=== PATIENT | male | born 1990 | race Caucasian/White ===

== ENCOUNTER 2016-05-22 10:00 | Emergency (ER) | payer OTHER ==
[~2016-05-22] VITALS: Ht 177.8 cm; Wt 70.9 kg
[2016-05-22 10:06] VITALS: TEMP 38.1; Ht 177.8 cm; Wt 70.9 kg
[2016-05-22] MEDS ORDERED: KETOROLAC TROMETHAMINE 30 MG/ML VIAL IV STA (10:34)
[2016-05-22] MEDS ORDERED: AMPICILLIN/SULBACTAM SOD INJ 3,000 MG in SODIUM CHLORIDE 0.9% 100ML 100 ML IV ONE (10:45)
[2016-05-22] MEDS ORDERED: DEXAMETHASONE SOD INJ 10 MG/ML VIAL IV ONE (10:45)
[2016-05-22 11:25] LABS: BASO ABS # 0.01 K/uL (0-0.2); COMPLETE YES; HEMATOCRIT 44.3 % (42-52); IG% 0.3 %; LYMPH % 6.1 %; MEAN CELL VOLUME 85.9 fL (80-100); MEAN CORPUSCULAR HEMOGLOBIN 31.2 pg (25-34); MEAN CORPUSCULAR HGB CONC 36.3 g/dl (32-36); MEAN PLATELET VOLUME 10.6 fL (7.4-10.4); MONO % 12.4 %; NEUT % 81.2 %; PLATELET COUNT 156 K/uL (130-400); RED BLOOD COUNT 5.16 M/uL (4.7-6.1); WHITE BLOOD COUNT 21.34 K/uL (4.8-10.8)
[2016-05-22 11:46] LABS: BUN/CREATININE RATIO 9.5 (10-20); CALCIUM 9.3 mg/dl (8.5-10.1); CREATININE 1.1 mg/dl (0.60-1.40); POTASSIUM 3.4 mmol/L (3.5-5.1)
[2016-05-22] MEDS ORDERED: ONDANSETRON INJ 2 MG/ML 2 ML VIAL IV STA (12:05)
[2016-05-22] MEDS ORDERED: MoRPHine SULFATE 10 MG/ML CARP/VIAL IV STA (12:05)
[2016-05-22] MEDS ORDERED: OXYC1TAB3 PO (12:10)
[2016-05-22] MEDS ORDERED: METH4PAK PO (12:10)
[2016-05-22] MEDS ORDERED: AMOX875T PO (12:10)
[2016-05-22 12:14] VITALS: BP 123/72; PULSE 112
[2016-05-22 13:06] VITALS: O2SAT 95
--- NOTE | 2016-05-22 15:31 | EMERGENCY ROOM VISIT NOTE ---
History First contact with patient: 10:28 Chief Complaint: SORETHROAT Stated Complaint: SORE THROAT, TONSILS HURT, MUCUS, HARD TO BREATHE History of Present Illness The patient is a 25 year old male who presents to the Emergency Room with complaints of sore throat, left tonsillar pain, mucus production and difficulty swallowing. The patient reports a prior history of recurrent tonsillar swelling and "stones". The patient reports having [facility], and he has not been evaluated by ENT. The patient reports feeling feverish this morning as well. He denies any recent upper respiratory infection, including sinus congestion, runny nose or significant cough. He rates his discomfort an 8 out of 10. Review of Systems HEENT: Denies dizziness, visual problems, hearing loss, tinnitus. PULMONARY: Denies cough, shortness of breath, sputum production or hemoptysis. CARDIOVASCULAR: Denies chest pain, palpitations, dyspnea on exertion, orthopnea or peripheral edema. GASTROINTESTINAL: Denies diarrhea, constipation, nausea, vomiting, or abdominal pain. GENITOURINARY: Denies dysuria, frequency, urgency or nocturia. NEUROLOGIC: Denies history of epilepsy, CVA, TIA or chronic headaches. MUSCULOSKELETAL: Denies history of joint tenderness/swelling. SKIN: Denies rashes or lesions. PSYCHIATRIC: Denies history of depression or mental illness. ENDOCRINE: Denies history of diabetes or thyroid disorders. Past Medical/Surgical History Medical Problems: (1) Recurrent tonsillitis Surgical Problems: (1) No history of previous surgery Family History Unremarkable Social History Smoking Status: Never Smoker Alcohol Use: occasionally Marital Status: single Occupation Status: [employer] student Current/Historical Medications Scheduled Amoxicillin & Pot Clavulanate (Augmentin 875-125 mg), 1 TAB PO BID Methylprednisolone (Medrol Dosepak), 0 PO DAILY Scheduled PRN Oxycodone Ir (Roxicodone Ir), 1-2 TAB PO Q4H PRN for Pain Allergies Coded Allergies: No Known Allergies (Unverified , 05/22/16) Physical Exam Vital Signs Date Time Temp Pulse Resp B/P Pulse Ox O2 Delivery O2 Flow Rate FiO2 05/22/16 13:06 95 Room Air 05/22/16 12:14 112 16 123/72 95 Room Air 05/22/16 10:06 97 Room Air 05/22/16 10:06 38.1 126 18 128/83 99 Room Air Pain Rating (0-10): 0 Physical Exam CONSTITUTIONAL: Healthy and well nourished. Alert and oriented X 3 with positive affect. Patient appears in mild discomfort from pain. HEENT: Normocephalic, atraumatic. Pupils equal, round and reactive. No facial edema noted. Ears and nares are clear. OROPHARYNX: The patient has left tonsillar hypertrophy when compared to the right. Uvula is midline. Negative trismus. Thick exudates are noted. No obvious postnasal drip. No evidence for Rahul's angina or retropharyngeal abscess. NECK: Full active range of motion without discomfort. No nuchal rigidity. Trachea is midline. LYMPHATICS: Left anterior cervical chain adenopathy is noted. RESPIRATORY: Clear to auscultation bilaterally with no wheezing, crackles, rhonchi or stridor. CARDIOVASCULAR: Regular rate and rhythm with no murmurs, rubs or gallops. GASTROINTESTINAL: Bowel sounds present in all quadrants. Soft and nontender to palpation. No obvious hepatosplenomegaly. MUSCULOSKELETAL: Full range of motion of all joints without discomfort. INTEGUMENTARY: No rash or other significant dermatologic conditions noted. HEMATOLOGIC: No ecchymosis or petechiae noted. NEUROLOGIC: No focal neurologic deficits noted. Facial sensations are intact. Medical Decision & Procedures Laboratory Results 05/22/16 10:55 Red Blood Count 5.16, Mean Corpuscular Volume 85.9, Mean Corpuscular Hemoglobin 31.2, Mean Corpuscular Hemoglobin Concent 36.3, Mean Platelet Volume 10.6, Neutrophils (%) (Auto) 81.2, Lymphocytes (%) (Auto) 6.1, Monocytes (%) (Auto) 12.4, Eosinophils (%) (Auto) 0.0, Basophils (%) (Auto) 0.0, Neutrophils # (Auto ) 17.32, Lymphocytes # (Auto) 1.30, Monocytes # (Auto) 2.65, Eosinophils # (Auto ) 0.00, Basophils # (Auto) 0.01 05/22/16 10:55 Test 05/22/16 10:55 White Blood Count 21.34 K/uL (4.8-10.8) Red Blood Count 5.16 M/uL (4.7-6.1) Hemoglobin 16.1 g/dL (14.0-18.0) Hematocrit 44.3 % (42-52) Mean Corpuscular Volume 85.9 fL (80-100) Mean Corpuscular Hemoglobin 31.2 pg (25-34) Mean Corpuscular Hemoglobin Concent 36.3 g/dl (32-36) Platelet Count 156 K/uL (130-400) Mean Platelet Volume 10.6 fL (7.4-10.4) Neutrophils (%) (Auto) 81.2 % Lymphocytes (%) (Auto) 6.1 % Monocytes (%) (Auto) 12.4 % Eosinophils (%) (Auto) 0.0 % Basophils (%) (Auto) 0.0 % Neutrophils # (Auto) 17.32 K/uL (1.4-6.5) Lymphocytes # (Auto) 1.30 K/uL (1.2-3.4) Monocytes # (Auto) 2.65 K/uL (0.11-0.59) Eosinophils # (Auto) 0.00 K/uL (0-0.5) Basophils # (Auto) 0.01 K/uL (0-0.2) RDW Standard Deviation 40.5 fL (36.4-46.3) RDW Coefficient of Variation 13.0 % (11.5-14.5) Immature Granulocyte % (Auto) 0.3 % Immature Granulocyte # (Auto) 0.06 K/uL (0.00-0.02) Erythrocyte Sedimentation Rate 20 mm/hr (0-14) Anion Gap 11.0 mmol/L (3-11) Est Creatinine Clear Calc Drug Dose 104.7 ml/min Estimated GFR () 109.1 Estimated GFR (Non- 94.1 BUN/Creatinine Ratio 9.5 (10-20) Calcium Level 9.3 mg/dl (8.5-10.1) The above labs were reviewed. White count is markedly elevated. Remaining electrolytes are normal. Medications Administered Medications (Trade) Dose Ordered Sig/Fredi Route Start Time Stop Time Status Last Admin Dose Admin Ampicillin Sodium/ Sulbactam Sodium/ Sodium Chloride (Unasyn Inj/Nss 100ml) 108 ml @ 200 mls/hr ONE ONCE IV 05/22/16 10:45 05/22/16 11:17 DC 05/22/16 10:55 200 MLS/HR Ketorolac Tromethamine (Toradol Inj) 30 mg NOW STAT IV 05/22/16 10:34 05/22/16 10:36 DC 05/22/16 10:55 30 MG Dexamethasone Sodium Phosphate (Decadron Inj) 10 mg NOW ONCE IV 05/22/16 10:45 05/22/16 10:46 DC 05/22/16 10:55 10 MG Morphine Sulfate (MoRPHine SULFATE INJ) 8 mg NOW STAT IV 05/22/16 12:05 05/22/16 12:07 DC 05/22/16 12:14 8 MG Ondansetron HCl (Zofran Inj) 4 mg NOW STAT IV 05/22/16 12:05 05/22/16 12:07 DC 05/22/16 12:13 4 MG ED Course Patient history and physical exam were performed. Nurse's notes were reviewed. Vital signs were also reviewed, showing a temperature of 38.1C. The patient is normotensive but tachycardic. O2 saturation is also normal. IV access was established, and labs were drawn. The patient was administered IV normal saline , Decadron, Toradol and Unasyn 3 g IV. Labs were reviewed to show significant leukocytosis. The patient reported persistent pain, and was therefore administered IV morphine. The patient reports that he plans on going back to the [place] for further management and ENT referral. The patient was provided a prescription for Augmentin, Medrol Dosepak and OxyIR 5 mg. He was encouraged to alternate ibuprofen and Tylenol for additional baseline pain relief and fever control. He was provided contact information for Dr. Saunders, ENT physician, for further follow-up. He was instructed to return to the emergency department over the weekend for any progressively worsening swelling, difficulty swallowing or other concerning symptoms. The patient was happy with plan of care, voiced understanding of all discharge instructions, and rated his discomfort a 4 out of 10 on my final reevaluation. Medical Decision Clinical exam today is not consistent with any significant peritonsillar abscess as he has a negative trismus. I do feel that this treatment today will provide benefit, however the patient was instructed to return for worsening symptoms. As indicated in the previous section, I do not suspect Rahul's angina or retropharyngeal abscess. Impression Primary Impression: Acute infective tonsillitis Departure Information Dispostion Home / Self-Care Condition GOOD Prescriptions Oxycodone Ir (Roxicodone Ir) 5 Mg Tab 1-2 TAB PO Q4H Y for Pain, #15 TAB For Initial Treatment Prov: Cornelius Valdez PA 05/22/16 Methylprednisolone (MEDROL DOSEPAK) 4 Mg Matt 0 PO DAILY, #1 PKT Prov: Cornelius Valdez PA 05/22/16 Amoxicillin & Pot Clavulanate (Augmentin 875-125 mg) 1 Tab Tab 1 TAB PO BID for 10 Days, #20 TAB Prov: Cornelius Valdez PA 05/22/16 Referrals Rc Saunders MD Forms HOME CARE DOCUMENTATION FORM, IMPORTANT VISIT INFORMATION Patient Instructions My [facility] Additional Instructions Complete all Augmentin antibiotics and Medrol dosepak as prescribed. Ibuprofen 800 mg and/or Tylenol 1000 mg every 8 hours. You may also alternate these medications for more effective pain relief: Ibuprofen --4 HRS--> Tylenol --4 HRS--> ibuprofen --4 HRS--> Tylenol .... OxyIR if needed for worse pain. Do not drink or drive while taking OxyIR. Suggest follow-up with Dr. Saunders (ENT) or other ENT as referred to by your PCP. Suggest follow-up in the next 48-72 hours. Return to the emergency department for any progressively worsening symptoms. Problem Qualifiers Primary Impression: Acute infective tonsillitis Pharyngitis/tonsillitis etiology: unspecified etiology Qualified Codes: J03.90 - Acute tonsillitis, unspecified
== END 2016-05-22 13:14 | disposition home or self-care (01) ==
LOC: C.EDB 10:02 → C.EDA 13:14
DX: J03.90 Acute tonsillitis, unspecified (principal)

== ENCOUNTER 2019-05-29 10:45 | Inpatient (IN) ==
[2019-05-29] MEDS ORDERED: ONDANSETRON INJ 2 MG/ML 2 ML VIAL IV PRN ×3 (10:47→18:13)
[2019-05-29] MEDS ORDERED: VANCOMYCIN CONSULT ACTIVE PRN ×2 (10:47→18:13)
[2019-05-29] MEDS ORDERED: VANCOMYCIN HCL 1,000 MG/270 ML BAG IV SCH (10:47)
--- NOTE | 2019-05-29 11:26 | History & Physical Report ---
"Date of Service May 29, 2019 Assessment & Plan (1) Septic joint of right knee joint: Aspiration from 05/25/19 is growing rare staph, repeat aspiration from this morning was grossly purulent. Patient admitted to [facility] started on IV vancomycin pending results of aspirate from today. ID consult placed. Preop labs ordered. Plan on right knee arthroscopic I&D this afternoon. Risks, benefits and alternatives to surgery including but not limited to infection, DVT, pain, stiffness, need for revision surgery, damage to blood vessels, damage to nerves, PE, , were discussed with the patient and they wish to proceed. All questions answered. Septic arthritis organism: due to unspecified organism Qualified Code(s): M00.9 - Pyogenic arthritis, unspecified History of Present Illness Chief Complaint: Right knee pain and swelling Primary Care Provider: Ferny Grimes MD 28 year old male with no signficant PMHx presented to the office with increasing right knee pain and swelling. He underwent arthroscopic PCL reconstruction about 6 weeks ago. He had an uneventful post operative course until about 1 1/2 weeks ago with increasing pain and swelling. States was walking and had some discomfort posteriorly, later in the day felt a crack in his knee and has had increasing pain and swelling since. He also reports feeling of fatigue, GI upset last week. Also reports he has been getting night sweats as well as having darker colored urine. He was seen in the office on 05/25/19 and knee was aspirated and sent for analysis. Results demonstrated cell count fo 8500 white cells, 91% polys. Grams stain showed no organisms but culture is growing staph species. Repeat aspiration in office today demonstrated gross purulence. Patient was directly admitted to [facility] for planned arthroscopic I&D this afternoon. Patient denies headaches, double vision, blurred vision, cough, sore throat, dysphagia, chest pain, sob, wheezing, n/v/d/c, numbness, tingling, fatigue, urinary symptoms, mood disorders. ROS positive for right knee pain and stiffness, night sweats, subjective chills. Allergies Allergy/AdvReac Type Severity Reaction Status Date / Time No Known Allergies Allergy Verified 05/19/19 10:08 Home Medications Home Medications Medication Instructions Recorded Confirmed Type buspirone 10 mg PO BID 04/25/19 05/11/19 History oxycodone-acetaminophen [Percocet] 1 tab PO TID PRN 04/25/19 05/11/19 History dicyclomine 10 mg capsule 10 mg PO TID #90 cap 05/19/19 05/19/19 Rx rifaximin 550 mg tablet 550 mg PO TID 14 Days #42 tab 05/19/19 05/19/19 Rx Past Med/Surg History Medical History Abdominal cramping Abdominal pain Anxiety Blood in stool Hearing deficit Osteoarthritis Post traumatic stress disorder Surgical History History of arthroscopy of right knee meniscus repair History of bilateral inguinal hernia repair History of esophagogastroduodenoscopy (EGD) History of meniscectomy of right knee 04/18/2019 with ptl reconstruction History of wisdom tooth extraction Family History Mother Family history of celiac disease Other No family history of adverse response to anesthesia Social History Preferred Language: Danish Communication Ability: Effective Visual Impairment: No Limitations Hearing Ability: Hard of Hearing 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 Beliefs That Will Affect Care: None marital status: single Current Living Situation: Significant Other and Other Current Living Situation Comment: Lives with girlfriend and friend current occupational status: student Feels Safe at Home: Yes Smoking Status: Never smoker Second Hand Exposure: No ; Hx Alcohol Use: Yes Alcohol type: beer, wine and hard liquor Alcohol Intake Frequency: Weekly Hx Substance Use: No Childhood Exposure to Second-Hand Smoke: No caffeine: Yes during the past year weight has: other Seatbelt Use: always Sunscreen Use: Yes Review of Systems All systems reviewed & are unremarkable except as noted in HPI & below Physical Exam Constitutional: well developed and well nourished; no acute distress Eyes: PERRL, conjunctivae normal, anicteric sclerae ENMT: external ear and nose normal, oropharynx normal Neck: normal visual inspection Respiratory: normal respiratory effort; no respiratory distress Cardiovascular: Rate/Rhythm: regular rhythm and + tachycardic Musculoskeletal: Right knee: Moderate to large effusion, no erythema. Surgical scars are well healed. ROM 0-80, painful at end range. Stable to valgus and varus stress. PCL and ACL stable on exam. Skin: no rashes, warm and dry Neurologic: patellar DTR's 2+ bilat, sensation intact Psychiatric: A+Ox3, euthymic affect Results & Data Laboratory Results Gram Stain Final 05/26/19 Gram Stain Result Many WBCs Seen No Organisms Seen Joint Fluid/Space Culture Preliminary 05/28/19 Organism 1 Staphylococcus species Quantity Rare Sens Sensitivities to Follow Test Result Flag Reference Site Syn Source | KNEE | | | Syn Color | RED | | | Syn Appear | CLOUDY | | | Syn WBC (A) | 8519 | H | 0-200 /uL | Syn RBC (A) | 93848 | | /uL | Synovial Poly WBC | 91.6 | | % | Synovial Avery WBC | 8.4 | | % | Syn Crystals | | | | | No monosodium urate crystals (gout) or calcium pyrophosphate | dihydrate crystals (pseudogout) identified. | | Gabriella Perez M.D. Diagnostic Findings right knee radiographs: Post operative findings s/p PCL reconstruction"
--- NOTE | 2019-05-29 11:57 | Infectious Disease Consult ---
Date of Consultation May 29, 2019 Assessment & Plan (1) Septic joint of right knee joint: continue vanco, check blood cultures, follow outpatient culture results. await OR findings. History of Present Illness Attending Physician: Niraj Eng MD pt admitted with knee infection. had knee pain and underwent PCL reconstruction 6 weeks ago. had increased pain, aspiration done on 05/25 - growing Staph, final pending, wbc 8519, 92%N. now on vanco. admitted with plans for OR later today, labs pending. denies fevers at home but temp 38.2 currently. no abd pain, no n/v/d. no cp, sob, cough. no complaints other than pain in knee, in brace. Allergies Allergy/AdvReac Type Severity Reaction Status Date / Time No Known Allergies Allergy Verified 05/19/19 10:08 Home Medications Home Medications Medication Instructions Recorded Confirmed Type buspirone 10 mg PO BID 04/25/19 05/11/19 History oxycodone-acetaminophen [Percocet] 1 tab PO TID PRN 04/25/19 05/11/19 History dicyclomine 10 mg capsule 10 mg PO TID #90 cap 05/19/19 05/19/19 Rx rifaximin 550 mg tablet 550 mg PO TID 14 Days #42 tab 05/19/19 05/19/19 Rx Patient History Medical History Abdominal cramping Abdominal pain Anxiety Blood in stool Hearing deficit Osteoarthritis Post traumatic stress disorder Surgical History History of arthroscopy of right knee meniscus repair History of bilateral inguinal hernia repair History of esophagogastroduodenoscopy (EGD) History of meniscectomy of right knee 04/18/2019 with ptl reconstruction History of wisdom tooth extraction Family History Mother Family history of celiac disease Other No family history of adverse response to anesthesia Social History Preferred Language: Spanish Communication Ability: Effective Visual Impairment: No Limitations Hearing Ability: Hard of Hearing 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 Beliefs That Will Affect Care: None marital status: single Current Living Situation: Significant Other and Other Current Living Situation Comment: Lives with girlfriend and friend current occupational status: student Feels Safe at Home: Yes Smoking Status: Never smoker Second Hand Exposure: No ; Hx Alcohol Use: Yes Alcohol type: beer, wine and hard liquor Alcohol Intake Frequency: Weekly Hx Substance Use: No Childhood Exposure to Second-Hand Smoke: No caffeine: Yes during the past year weight has: other Seatbelt Use: always Sunscreen Use: Yes Review of Systems Review of Systems: All systems reviewed & are unremarkable except as noted in HPI & below Physical Exam Constitutional: WD/WN, vitals as above Eyes: PERRL, conjunctivae normal, anicteric sclerae ENMT: external ear and nose normal, oropharynx normal Neck: normal visual inspection Respiratory: normal respiratory effort, lungs clear to auscultation Cardiovascular: RRR, no murmur, no edema Gastrointestinal (Abdomen): normal bowel sounds, soft, nontender, no hepatosplenomegaly Musculoskeletal: no cyanosis or clubbing, extremities motor strength 5/5 Skin: no rashes, warm and dry knee dressing c/d/i Psychiatric: A+Ox3, euthymic affect Results & Data Vital Signs (Past 12 Hours) Vital Signs Temp Resp BP Pulse Ox 05/29/19 11:48 38.2 C H 18 122/81 96 PG Care Time/CCT Total # of Minutes Spent Total Time Spent with Patient: Total time spent is greater than 50% in coordination of care (as documented) at patient's floor/unit and/or counseling patient: Coding Level of Care Code 22827 Inpt Consult Level 4 Diagnoses Septic joint of right knee joint M00.9 Septic arthritis organism: due to unspecified organism (1) Septic joint of right knee joint Septic arthritis organism: due to unspecified organism Qualified Code(s): M00.9 - Pyogenic arthritis, unspecified
[2019-05-29] MEDS ORDERED: PATIENT'S HEIGHT AND/OR WEIGHT NEEDED SCH (12:00)
[2019-05-29 12:20] LABS: Basophils # (auto) 0.01 K/uL (0-0.2); Basophils % (auto) 0.1 %; Eosinophils # (auto) 0.01 K/uL (0-0.5); Eosinophils % (auto) 0.1 %; Hematocrit (blood only) 41.7 % (42-52); Hemoglobin 14.5 g/dL (14.0-18.0); Immature Granulocytes # (auto) 0.01 K/uL (0.00-0.02); Immature Granulocytes % (auto) 0.1 %; Lymphocytes # (auto) 0.75 K/uL (1.2-3.4); Lymphocytes % (auto) 9.5 %; Mean Corpuscular Hemoglobin 29.7 pg (25-34); Mean Corpuscular Volume 85.5 fL (80-100); Monocytes # (auto) 1.33 K/uL (0.11-0.59); Monocytes % (auto) 16.8 %; Neutrophils # (auto) 5.79 K/uL (1.4-6.5); Neutrophils % (auto) 73.4 %; Platelet Count 382 K/uL (130-400); RDW Coefficient of Variation 11.4 % (11.5-14.5); RDW Standard Deviation 35.6 fL (36.4-46.3); Red Blood Count 4.88 M/uL (4.7-6.1)
[2019-05-29 12:22] LABS: Mean Corpuscular Hgb Conc 34.8 g/dL (32-36)
[2019-05-29] MEDS: OXYCODONE/ACETAMINOPHEN 5mg/325mg TAB PO PRN ×2 (12:25→19:48)
[2019-05-29] MEDS: SODIUM CHLORIDE 0.9% 1000ML 1,000 ML IV SCH ×2 (12:26→19:42)
[2019-05-29] MEDS ORDERED: VANCOMYCIN HCL 2,000 MG in SODIUM CHLORIDE 0.9% 500 ML IV STA (12:33)
[2019-05-29 12:37] LABS: BUN Creatinine Ratio 11.5 (10-20); Calcium 9.9 mg/dl (8.5-10.1); Creatinine Clr Calc Pharmacy 109.4 ml/min; Est GFR (African American) 114.3; Est GFR (Non-African American) 98.6; Potassium 3.6 mmol/L (3.5-5.1)
--- NOTE | 2019-05-29 13:46 | Pharmacy Report ---
Pharmacy Abx Dose Short Note - Date of Service May 29, 2019 - Assessment & Plan Assessment * 28 year old M with septic R knee on vancomycin. PCL reconstruction ~6 weeks ago * Outpatient R knee culture from 05/25 w Staph species * ID consulted - continue vancomycin Vancomycin * Loading dose of 25 mg/kg * Maintenance dose based on AUC nomogram * Estimated trough 13.4 mcg/mL * Trough ordered prior to 4th overall dose Plan * Vancomycin 2000 mg IV x1 then 1250 mg IV q8h * Trough 05/30 @ 1330 Pharmacy will continue to follow and will adjust dose/frequency as necessary. Thank you.
[2019-05-29 15:35] LABS: Color Synovial Fluid Yellow; Source Synovial Fluid KNEE
[2019-05-29 15:36] LABS: Appearance Synovial Fluid Turbid; RBC Synovial Fluid (A) 27000 /uL; WBC Synovial Fluid (A) 139300 /ul (0-200)
[2019-05-29 15:37] LABS: Mononuclear WBC Synovial 4.2 %; Polynuclear WBC Synovial 95.8 %
--- NOTE | 2019-05-29 15:44 | Hospitalist Consultation ---
Date of Consultation May 29, 2019 Assessment & Plan (1) Septic joint of right knee joint: Labs reviewed:WBC 8519, 92%N. Cont Vanco with trough 15-20 managed by pharmacy. Pt will have today right knee incision and drainage , status post posterior cruciate ligament reconstruction. (2) Irritable bowel syndrome with diarrhea: Stable, continue Dicyclomine 10 mg PO TID. Present on Admission?: Yes (3) Recurrent tonsillitis: No issues at this time. Present on Admission?: Yes (4) Anxiety disorder: Continue buspirone 10 mg PO BID. Present on Admission?: Yes History of Present Illness Reason for Consultation: medical management Requesting Physician: The patient is 28 y/o male with PMHx of recurrent tonsillitis,IBS admitted for septic joint of the right knee.Pt underwent PCL reconstruction 6 weeks ago. S/p surgery had increased pain, aspiration done on 05/25 culture grew Staph, final culture pending. Patient c/o right knee pain and swelling.Pt denies fever, chills, chest pain, SOB, abdominal pain, frequency and urgency. Attending Physician: Niraj Eng MD Allergies Allergy/AdvReac Type Severity Reaction Status Date / Time No Known Allergies Allergy Verified 05/19/19 10:08 Home Medications Home Medications Medication Instructions Recorded Confirmed Type buspirone 10 mg PO BID 04/25/19 05/29/19 History oxycodone-acetaminophen [Percocet] 1 tab PO TID PRN 04/25/19 05/29/19 History dicyclomine 10 mg capsule 10 mg PO TID #90 cap 05/19/19 05/29/19 Rx rifaximin 550 mg tablet 550 mg PO TID 14 Days #42 tab 05/19/19 05/29/19 Rx Patient History Medical History Abdominal cramping Abdominal pain Anxiety Blood in stool Hearing deficit Osteoarthritis Post traumatic stress disorder Surgical History History of arthroscopy of right knee meniscus repair History of bilateral inguinal hernia repair History of esophagogastroduodenoscopy (EGD) History of meniscectomy of right knee 04/18/2019 with ptl reconstruction History of wisdom tooth extraction Family History Mother Family history of celiac disease Other No family history of adverse response to anesthesia Social History Preferred Language: [place] Citizen Communication Ability: Effective Visual Impairment: No Limitations Hearing Ability: Hard of Hearing 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 Beliefs That Will Affect Care: None marital status: single Current Living Situation: Other Current Living Situation Comment: roommate current occupational status: student Other Information That Helps Us Care for You: No Feels Safe at Home: Yes Safety Concerns: Feels Safe At This Time Smoking Status: Never smoker Second Hand Exposure: No ; Hx Alcohol Use: Yes Alcohol type: beer, wine and hard liquor Alcohol Intake Frequency: Weekly Hx Substance Use: No Childhood Exposure to Second-Hand Smoke: No caffeine: Yes during the past year weight has: other Seatbelt Use: always Sunscreen Use: Yes Review of Systems Review of Systems: All systems reviewed & are unremarkable except as noted in HPI & below Physical Exam Constitutional: WD/WN, vitals as above well developed and well nourished; no acute distress Eyes: PERRL, conjunctivae normal, anicteric sclerae ENMT: external ear and nose normal, oropharynx normal Mouth: no TMJ abnormality Mallampati Class: II Neck: normal visual inspection Respiratory: normal respiratory effort, lungs clear to auscultation normal respiratory effort; no respiratory distress Auscultation: lungs clear to auscultation bilaterally Cardiovascular: RRR, no murmur, no edema Rate/Rhythm: regular rate, regular rhythm and + tachycardic Gastrointestinal (Abdomen): normal bowel sounds, soft, nontender, no hepatosplenomegaly Musculoskeletal: no cyanosis or clubbing, extremities motor strength 5/5 Skin: no rashes, warm and dry Neurologic: patellar DTR's 2+ bilat, sensation intact moves all extremities Psychiatric: A+Ox3, euthymic affect Orientation: alert and oriented x 3 Results & Data Vital Signs (Past 12 Hours) Vital Signs Temp Pulse Resp BP Pulse Ox 05/29/19 15:01 37.3 C 91 H 16 114/76 94 05/29/19 11:30 38.2 C H 123 H 18 122/81 PG Care Time/CCT Total # of Minutes Spent Total Time Spent with Patient: Total time spent is greater than 50% in coordination of care (as documented) at patient's floor/unit and/or counseling p atient: Coding Level of Care Code 41190 Inpt Consult Level 3 Diagnoses Septic joint of right knee joint M00.9 Septic arthritis organism: due to unspecified organism Irritable bowel syndrome with diarrhea K58.0 Recurrent tonsillitis J03.91 Anxiety disorder F41.9 (1) Septic joint of right knee joint Septic arthritis organism: due to unspecified organism Qualified Code(s): M00.9 - Pyogenic arthritis, unspecified
--- NOTE | 2019-05-29 16:35 | Anesthesiology Consultation ---
Date of Service May 29, 2019 Assessment & Plan Chart Review Chart Review: Acceptable Risk for Surgery and Patient NOT seen in Pre Admission Testing Consults Requested none Proposed Anesthesia Risk / Benefits Reviewed With: PT / POA / Parent / Guardian, Accepts Plan and Informed Consent Obtained History Surgery Operation Date: 05/29/19 14:05 Proposed Procedures p Right Knee Incision and Drainage Arthroscopy - Niraj Eng MD Height/Weight Height: 5 ft 9.5 in Weight: 78.18 kg Allergies Allergy/AdvReac Type Severity Reaction Status Date / Time No Known Allergies Allergy Verified 05/19/19 10:08 Medications Home Medications Medication Instructions Recorded Confirmed Last Taken buspirone 10 mg PO BID 04/25/19 05/29/19 05/08/19 oxycodone-acetaminophen [Percocet] 1 tab PO TID PRN 04/25/19 05/29/19 05/28/19 dicyclomine 10 mg capsule 10 mg PO TID #90 cap 05/19/19 05/29/19 05/28/19 rifaximin 550 mg tablet 550 mg PO TID 14 Days #42 tab 05/19/19 05/29/19 Unknown Active Medications Generic Name Dose Route Start Last Admin Trade Name Freq PRN Reason Stop Dose Admin Sodium Chloride 1,000 mls @ 100 mls/hr 05/29/19 11:00 05/29/19 12:26 Nss 1000ml IV 06/28/19 10:59 100 mls/hr .Q10H MARJORIE Administration Vancomycin HCl 2,000 mg/ 540 mls @ 200 mls/hr 05/29/19 12:33 05/29/19 16:09 Sodium Chloride IV 05/29/19 15:14 Infused NOW STA Infusion Oxycodone/Acetaminophen 1 - 2 tab 05/29/19 10:47 05/29/19 12:25 Percocet 5mg/325mg PO 06/12/19 10:46 1 tab Q4H PRN Administration Pain Past Medical History Medical History Abdominal cramping Abdominal pain Anxiety Blood in stool Hearing deficit Osteoarthritis Post traumatic stress disorder Past Family History Family History Mother Family history of celiac disease Other No family history of adverse response to anesthesia Past Surgical History Surgical History History of arthroscopy of right knee meniscus repair History of bilateral inguinal hernia repair History of esophagogastroduodenoscopy (EGD) History of meniscectomy of right knee 04/18/2019 with ptl reconstruction History of wisdom tooth extraction Social History Smoking Status: Never smoker Hx Alcohol Use: Yes Alcohol type: beer, wine and hard liquor alcohol intake frequency: holidays/special occasions only Hx Substance Use: No substance use type: does not use Physical Exam Vital Signs Last Vital Signs Temp 37.3 C 05/29/19 15:01 Pulse 91 H 05/29/19 15:01 Resp 16 05/29/19 15:01 BP 114/76 05/29/19 15:01 Pulse Ox 94 05/29/19 15:01 Testing Laboratory Results 05/29/19 11:59 05/29/19 11:59
[2019-05-29] MEDS ORDERED: HYDROmorphone INJ 2 MG/ML SYR/VIAL IV PRN (16:38)
[2019-05-29] MEDS ORDERED: ePHEDrine sulfate 50 MG/ML AMP IV PRN (16:38)
[2019-05-29] MEDS ORDERED: PROMETHAZINE HCL 12.5 MG in SODIUM CHLORIDE 0.9% 50 ML IV PRN (16:38)
[2019-05-29] MEDS ORDERED: ATROPINE SULFATE 0.1 MG/ML 10ML SYR IV PRN (16:38)
[2019-05-29] MEDS ORDERED: METOCLOPRAMIDE HCL INJ 5 MG/ML 2 ML VIAL IV PRN ×2 (16:38→18:13)
[2019-05-29] MEDS ORDERED: MIDAZOLAM HCL 1 MG/ML 2ML VIAL ONE (16:41)
[2019-05-29] MEDS ORDERED: fentaNYL citrate 100 MCG/2 ML VIAL ONE (16:41)
[2019-05-29] MEDS ORDERED: DEXAMETHASONE SOD INJ 4 MG/ML VIAL ONE (16:41)
[2019-05-29] MEDS ORDERED: PROPOFOL IV EMULSION 10 MG/ML 20 ML VIAL IV ONE (16:41)
[2019-05-29] MEDS ORDERED: LIDOCAINE HCL 2% 2 ML VIAL/AMP(20MG/ML) INFIL ONE (16:41)
[2019-05-29] MEDS ORDERED: ONDANSETRON INJ 2 MG/ML 2 ML VIAL ONE (16:41)
[2019-05-29] MEDS ORDERED: BUPIVACAINE 0.5 % 5 MG/1 ML MPF 30ML VIAL ONE (16:47)
--- NOTE | 2019-05-29 16:47 | History & Physical Bridge Note ---
Date of Service May 29, 2019 History & Physical Bridge Note I have examined the patient, reviewed the History & Physical and in the interval since the performance of the History & Physical I have noted the following changes of clinical significance: no changes noted
[2019-05-29] MEDS ORDERED: HYDROmorphone INJ 2 MG/ML SYR/VIAL ONE (17:09)
[2019-05-29] MEDS ORDERED: OXYCODONE/ACETAMINOPHEN 5mg/325mg TAB PO PRN (17:28)
[2019-05-29] MEDS ORDERED: bisacodyL 10 MG SUPP PR PRN (18:13)
[2019-05-29] MEDS ORDERED: MAGNESIUM HYDROXIDE SUSP 30 ML UDC PO PRN (18:13)
[2019-05-29] MEDS ORDERED: NALOXONE HCL 0.4 MG/1 ML VIAL/CARP IV PRN (18:13)
--- NOTE | 2019-05-29 18:13 | Operative Report ---
Post Operative Report Pre & Post Diagnosis Operation Date: 05/29/19 14:05 Pre-Op Diagnosis: INFECTED RIGHT KNEE STATUS POST POSTERIOR CRUCIATE LIGAMENT RECONSTRUCTION Post-Op Diagnosis: INFECTED RIGHT KNEE STATUS POST POSTERIOR CRUCIATE LIGAMENT RECONSTRUCTION I identified the patient and participated in the time-out.: Yes Procedure Operation Date: 05/29/19 14:05 Actual Procedures p Right Knee Incision and Drainage Arthroscopy(Right), complete synovectomy- Niraj Eng MD Surgeon Niraj Eng MD Bartender Helper None Estimated Blood Loss 5 Findings Consistent with Post-Op Diagnosis Specimens Cultures Drains 1 Hemovac Anesthesia Type General Complications none Disposition Accompanied Patient To Recovery: No Disposition: Recovery Room Indications The patient is a 28-year-old male who proximally 6 weeks ago had undergone arthroscopic PCL reconstruction. He had been doing well postoperatively. About 2 weeks ago he had GI infection and underwent colonoscopy. For the last week and a half or so he has been having increasing pain and swelling in his knee. We evaluated him in the office on . At that point an aspiration was performed. The fluid was serosanguineous in nature. White blood cell count from that aspirate was 8500. The Gram stain was negative for bacteria. However culture from that aspirate began growing rare gram-positive cocci. He was evaluated the office today and was found to have continued pain and swelling and warmth from the knee. There was not really any significant erythema. He had complaints of chills and general malaise. Temperature in the office was 99.2 F but he was tachycardic at 135 bpm. A repeat aspirate demonstrated purulent fluid. He is directly mated from the office to the hospital. As we had a good aspiration from the office I started IV antibiotics once he reached the hospital. And as soon as operative availability allowed we are proceeding with irrigation debridement of the knee. Description of Procedure We discussed various treatment measures. The patient wished to proceed with arthroscopy. Risks, benefits and alternatives to surgery including, but not limited to, infection, DVT, pain, stiffness, need for revision surgery, possible continued infection of the allograft PCL reconstruction and possible need of later removal of the graft as well as hardware, failure to relieve all symptoms, damage to blood vessels, damage to nerves, risk of the anesthesia were discussed with the patient and they wished to proceed. The patient was identified. Laterality was confirmed and marked. The patient received a preoperative antibiotic. They were transferred to the operating room and placed in supine position and induced into general endotracheal anesthesia per the anesthesia staff. A well-padded tourniquet was placed on the thigh and the limb was prepped and draped in the usual standard manner with ChloraPrep. The limb was exsanguinated and the tourniquet was inflated. I made a standard anterolateral viewing portal made through a stab incision and bluntly entered the suprapatellar pouch. Fluid expressed from this was sent for culture. There was some purulent and inflammatory material seen throughout the knee. Utilizing a 4.5 mm shaver I performed a complete synovectomy. I thoroughly irrigated and debrided the knee through all 3 compartments utilizing arthroscopic shaver. There was grade 0 cartilage of the patella. There was grade 0 cartilage of the trochlea. There was grade 1 and 2 cartilage of the medial femoral condyle. There was grade 0 cartilage of the medial tibial plateau. The medial meniscus was normal. The Endobutton utilized for his PCL reconstruction was visible on the medial femoral condyle. This appeared to be stable. The ACL was probed and was normal. The PCL reconstruction was probed and found to be intact. His posterior drawer was stable. The lateral meniscus was normal There was grade 0 cartilage of the lateral femoral condyle. There was grade 0 cartilage of the lateral tibial plateau. A drain was then passed through 1 of the portals out anterior laterally. All of the instrumentation was removed from the knee. The portal sites were closed with nylon. A sterile dressing was applied and the tourniquet was released. All needle and sponge counts were correct at the end of the procedure. The patient was transferred to the PACU in stable condition without apparent complication. We will plan to consult infectious disease for assistance in antibiotic selection. I discussed with the patient that he may require a prolonged course of IV antibiotic therapy in order to try to preserve his allograft PCL reconstruction. I attest to the content of the Intraoperative Record and any orders documented therein. Any exceptions are noted below.
[2019-05-29] MEDS ORDERED: SODIUM CHLORIDE 0.9% 1000ML 1,000 ML IV SCH (18:15)
[2019-05-29] MEDS ORDERED: VANCOMYCIN HCL 1,250 MG in SODIUM CHLORIDE 0.9% 250 ML IV SCH (18:15)
--- NOTE | 2019-05-29 18:25 | Anesthesiology Progress Note ---
Date of Service May 29, 2019 Anesthesia Post Procedure Vital Signs Vital Signs: Temp Pulse Pulse Resp BP Pulse Ox 05/29/19 18:20 80 16 126/80 100 05/29/19 18:10 36.3 C L 80 12 111/75 99 05/29/19 16:30 37 C 98 H 16 127/73 98 05/29/19 15:01 37.3 C 91 H 16 114/76 94 05/29/19 11:30 38.2 C H 123 H 18 122/81 Pain Intensity Right Knee: Pain Intensity: 4 Transfer of Care Handoff Completed per policy Notes Mental Status: alert / awake / arousable and participated in evaluation Patient Amnestic to Procedure: Yes Nausea / Vomiting: adequately controlled Pain: adequately controlled Airway Patency, RR, SpO2: stable & adequate BP & HR: stable & adequate Hydration State: stable & adequate Anesthetic Complications: no major complications apparent
[2019-05-29] MEDS: fentaNYL citrate 100 MCG/2 ML VIAL IV PRN ×2 (18:45→18:50)
[2019-05-29] MEDS ORDERED: KETOROLAC 30 MG/ML VIAL ONE (18:58)
[2019-05-29] MEDS ORDERED: KETOROLAC 30 MG/ML VIAL IV ONE (19:00)
--- NOTE | 2019-05-29 19:30 | Anesthesiology Progress Note ---
Date of Service May 29, 2019 Anesthesia Post Procedure Vital Signs Vital Signs: Temp Pulse Pulse Resp BP Pulse Ox 05/29/19 18:30 80 16 123/77 99 05/29/19 18:20 80 16 126/80 100 05/29/19 18:10 36.3 C L 80 12 111/75 99 05/29/19 16:30 37 C 98 H 16 127/73 98 05/29/19 15:01 37.3 C 91 H 16 114/76 94 05/29/19 11:30 38.2 C H 123 H 18 122/81 Pain Intensity Right Knee: Pain Intensity: 4 Transfer of Care Handoff Completed per policy Notes Mental Status: alert / awake / arousable and participated in evaluation Patient Amnestic to Procedure: Yes Nausea / Vomiting: adequately controlled Pain: adequately controlled Airway Patency, RR, SpO2: stable & adequate BP & HR: stable & adequate Hydration State: stable & adequate Anesthetic Complications: no major complications apparent and Pt Satisfied with anesthetic care
[2019-05-29] MEDS ORDERED: RIFAXIMIN 550 MG TABLET PO SCH (21:00)
[2019-05-29] MEDS: VANCOMYCIN HCL 1,250 MG in SODIUM CHLORIDE 0.9% 250 ML IV SCH (21:25)
[2019-05-29] MEDS: DOCUSATE SODIUM 100 MG CAP PO SCH (21:25)
[2019-05-29] MEDS: DICYCLOMINE HCL 10 MG CAP PO SCH (21:25)
[2019-05-29] MEDS: CeleBREX 200 MG CAP PO SCH (21:25)
[2019-05-29] MEDS: SENNA 8.6 MG TAB PO SCH (21:26)
[2019-05-30] MEDS: OXYCODONE/ACETAMINOPHEN 5mg/325mg TAB PO PRN ×2 (04:04→13:54)
[2019-05-30 05:03] LABS: Mean Corpuscular Hemoglobin 29.5 pg (25-34); Mean Corpuscular Hgb Conc 34.2 g/dL (32-36); Mean Corpuscular Volume 86.4 fL (80-100); Platelet Count 344 K/uL (130-400); RDW Coefficient of Variation 11.5 % (11.5-14.5); White Blood Count 4.49 K/uL (4.8-10.8)
[2019-05-30 05:25] LABS: BUN Creatinine Ratio 13.7 (10-20); Blood Urea Nitrogen 10 mg/dl (7-18); Calcium 8.8 mg/dl (8.5-10.1); Carbon Dioxide 27 mmol/L (21-32); Chloride 102 mmol/L (98-107); Creatinine Clr Calc Pharmacy 160.2 ml/min; Est GFR (African American) > 150.0; Est GFR (Non-African American) 129.5; Glucose 121 mg/dl (70-99); Sodium 135 mmol/L (136-145)
[2019-05-30] MEDS: VANCOMYCIN HCL 1,250 MG in SODIUM CHLORIDE 0.9% 250 ML IV SCH ×2 (05:34→14:15)
--- NOTE | 2019-05-30 06:58 | Orthopedic Progress Note ---
Date of Service May 30, 2019 Assessment & Plan (1) Septic joint of right knee joint: POD#1 right arthroscopic I&D -WBAT -Pain management -DVT prophylaxis-SCDs -Continue IV vancomycin. Will await ID recommendations. Cx's from knee aspirate on 05/25/19 grew SPECIAL WEAPONS AND TACTICS OFFICER. Aspiration from office yesterday and OR cultures are pending. Blood cultures pending. Will likely need prolonged IV antibiotics. Patient seen and examined, agree with above. Appreciate ID assistance. Subjective POD#1 right knee arthroscopic I&D. He is resting in bed comfortably. Pain is controlled. He is having continued night sweats. No other complaints at this time. Is on IV vanco. Review of Systems Review of Systems: All systems reviewed & are unremarkable except as noted in HPI & below Physical Exam Physical Exam: Right knee dressing is c/d/i, no calf tenderness. Toes mobile, good dorsiflexion. Distally n/v status and sensation intact. Constitutional: well developed and well nourished; no acute distress Results & Data ([facility]) Vital Signs (Past 12 Hours) Vital Signs Temp Pulse Pulse Resp BP Pulse Ox 05/30/19 03:03 36.8 C 76 20 124/86 100 05/29/19 23:25 36.7 C 85 20 120/77 95 05/29/19 22:26 36.9 C 97 H 16 114/69 95 05/29/19 21:10 36.5 C 94 H 16 120/77 95 05/29/19 20:13 37 C 78 16 113/74 94 05/29/19 19:00 80 16 125/76 97 Laboratory Results H & H 05/29/19 05/30/19 Range/Units 11:59 04:43 Hgb 14.5 13.0 L (14.0-18.0) g/dL Hct 41.7 L 38.0 L (42-52) % (1) Septic joint of right knee joint Septic arthritis organism: due to unspecified organism Qualified Code(s): M00.9 - Pyogenic arthritis, unspecified
--- NOTE | 2019-05-30 07:56 | Anesthesiology Progress Note ---
Date of Service May 30, 2019 Anesthesia Post Procedure Vital Signs Vital Signs: Temp Pulse Pulse Resp BP Pulse Ox 05/30/19 07:42 36.4 C L 62 18 98/61 L 98 05/30/19 03:03 36.8 C 76 20 124/86 100 05/29/19 23:25 36.7 C 85 20 120/77 95 05/29/19 22:26 36.9 C 97 H 16 114/69 95 05/29/19 21:10 36.5 C 94 H 16 120/77 95 05/29/19 20:13 37 C 78 16 113/74 94 05/29/19 19:00 80 16 125/76 97 05/29/19 18:45 36.5 C 81 16 125/79 94 05/29/19 18:30 80 16 123/77 99 05/29/19 18:20 80 16 126/80 100 05/29/19 18:10 36.3 C L 80 12 111/75 99 05/29/19 16:30 37 C 98 H 16 127/73 98 05/29/19 15:01 37.3 C 91 H 16 114/76 94 05/29/19 11:30 38.2 C H 123 H 18 122/81 Pain Intensity Right Knee: Pain Intensity: 4 Notes Mental Status: alert / awake / arousable and participated in evaluation Nausea / Vomiting: adequately controlled Pain: adequately controlled Airway Patency, RR, SpO2: stable & adequate BP & HR: stable & adequate Hydration State: stable & adequate
--- NOTE | 2019-05-30 08:18 | Hospitalist Progress Note ---
Date of Service May 30, 2019 Assessment & Plan (1) Septic joint of right knee joint: Patient is POD#1 right arthroscopic I&D . Pain management DVT prophylaxis with SCDs Continue IV vancomycin Blood cultures x2 per ID recommendations Cultures from the aspirate May 25, 2019 grew OSTOMY NURSE . Aspiration from OR cultures are still pending Patient will likely need prolonged antibiotics , will discuss with ID .labs reviewed:WBC 8519, 92%N. Full code (2) Irritable bowel syndrome with diarrhea: Stable, continue Dicyclomine 10 mg PO TID. (3) Recurrent tonsillitis: No issues at this time. (4) Anxiety disorder: Continue buspirone 10 mg PO BID. Subjective Patient seen and examined at the bedside. POD#1 right knee arthroscopic I&D. He is resting in bed comfortably. Pain is controlled. Patient is afebrile but reports continues night sweats. Patient denies fever, chills, chest pain, shortness of breath, abdominal pain, frequency, urgency, syncope or near syncope. He is right knee is still warm to touch but improving. He is having continued night sweats. No other complaints at this time. Patient is on IV vanco. Review of Systems Review of Systems: All systems reviewed & are unremarkable except as noted in HPI & below Physical Exam Constitutional: WD/WN, vitals as above well developed and well nourished; no acute distress Eyes: PERRL, conjunctivae normal, anicteric sclerae ENMT: external ear and nose normal, oropharynx normal Mouth: no TMJ abnormality Mallampati Class: II Neck: normal visual inspection Respiratory: normal respiratory effort, lungs clear to auscultation normal respiratory effort; no respiratory distress Auscultation: lungs clear to auscultation bilaterally Cardiovascular: RRR, no murmur, no edema Rate/Rhythm: regular rate, regular rhythm and + tachycardic Gastrointestinal (Abdomen): normal bowel sounds, soft, nontender, no hepatosplenomegaly Musculoskeletal: no cyanosis or clubbing, extremities motor strength 5/5 Skin: no rashes, warm and dry Neurologic: patellar DTR's 2+ bilat, sensation intact moves all extremities Psychiatric: A+Ox3, euthymic affect Orientation: alert and oriented x 3 Results & Data Vital Signs (Past 12 Hours) Vital Signs Temp Pulse Resp BP Pulse Ox 05/30/19 07:42 36.4 C L 62 18 98/61 L 98 05/30/19 03:03 36.8 C 76 20 124/86 100 05/29/19 23:25 36.7 C 85 20 120/77 95 05/29/19 22:26 36.9 C 97 H 16 114/69 95 05/29/19 21:10 36.5 C 94 H 16 120/77 95 PG Care Time/CCT Total # of Minutes Spent Total Time Spent with Patient: Total time spent is greater than 50% in coordination of care (as documented) at patient's floor/unit and/or counseling patient: Coding Level of Care Code 09435 Subseq Hosp Care Lvl 3 Diagnoses Septic joint of right knee joint M00.9 Septic arthritis organism: due to unspecified organism Irritable bowel syndrome with diarrhea K58.0 Recurrent tonsillitis J03.91 Anxiety disorder F41.9 (1) Septic joint of right knee joint Septic arthritis organism: due to unspecified organism Qualified Code(s): M00.9 - Pyogenic arthritis, unspecified
[2019-05-30] MEDS: CeleBREX 200 MG CAP PO SCH ×2 (09:16→20:25)
[2019-05-30] MEDS: MULTIVITAMIN TAB PO SCH (09:16)
[2019-05-30] MEDS: DICYCLOMINE HCL 10 MG CAP PO SCH ×3 (09:17→20:25)
[2019-05-30] MEDS: DOCUSATE SODIUM 100 MG CAP PO SCH ×2 (09:22→20:23)
--- NOTE | 2019-05-30 12:33 | Infectious Disease Progress Nt ---
Date of Service May 30, 2019 Assessment & Plan (1) Septic joint of right knee joint: continue vanco for now, awaitblood culture OR culture results. repeat blood culturesx 2 Subjective pt s/p OR cultures pending, previous aspirate growing riley sensitive FIELD REPRESENTATIVE/HEALTH EDUCATION. blood cultures now + as well. afebrile. pain controlled, on vanco, tolerating well. wbc 4, wbc from OR fluid >139,000. no abd pain, no n/v/d.no cp, sob, cough. Review of Systems Review of Systems: All systems reviewed & are unremarkable except as noted in HPI & below Physical Exam Constitutional: WD/WN, vitals as above Eyes: PERRL, conjunctivae normal, anicteric sclerae ENMT: external ear and nose normal, oropharynx normal Neck: normal visual inspection Respiratory: normal respiratory effort, lungs clear to auscultation Cardiovascular: RRR, no murmur, no edema Gastrointestinal (Abdomen): normal bowel sounds, soft, nontender, no hepatosplenomegaly Musculoskeletal: no cyanosis or clubbing, extremities motor strength 5/5 Skin: no rashes, warm and dry Psychiatric: A+Ox3, euthymic affect Results & Data Vital Signs (Past 12 Hours) Vital Signs Temp Pulse Resp BP Pulse Ox 05/30/19 07:42 36.4 C L 62 18 98/61 L 98 05/30/19 03:03 36.8 C 76 20 124/86 100 Laboratory Results Microbiology 05/29/19 17:30 Knee,Right Gram Stain - Final 05/29/19 17:30 Knee,Right Aerobic and Anaerobic Culture - Preliminary Staphylococcus species 05/29/19 Unknown Knee,Right Gram Stain - Final 05/29/19 Unknown Knee,Right Joint Fluid Culture - Preliminary Staphylococcus species 05/29/19 11:59 Blood Anaerobic Blood Culture - Preliminary Gram positive cocci clusters PG Care Time/CCT Total # of Minutes Spent Total Time Spent with Patient: Total time spent is greater than 50% in coordination of care (as documented) at patient's floor/unit and/or counseling patient: Coding Level of Care Code 48999 Subseq Hosp Care Lvl 3 Diagnoses Septic joint of right knee joint M00.9 Septic arthritis organism: due to unspecified organism (1) Septic joint of right knee joint Septic arthritis organism: due to unspecified organism Qualified Code(s): M00.9 - Pyogenic arthritis, unspecified
[2019-05-30] MEDS ORDERED: VANCOMYCIN TROUGH ONE (13:30)
--- NOTE | 2019-05-30 14:43 | Pharmacy Report ---
Pharmacy Abx Dose Short Note - Date of Service May 30, 2019 - Assessment & Plan Microbiology 05/25/19 11:10 Knee,Right Joint Fluid Culture - Final Coag neg staph not lugdunensis 05/29/19 Unknown Knee,Right Joint Fluid Culture - Preliminary Staphylococcus species 05/29/19 17:30 Knee,Right Aerobic and Anaerobic Culture - Preliminary Staphylococcus species 05/29/19 12:00 Blood Aerobic Blood Culture - Preliminary 05/29/19 12:00 Blood Anaerobic Blood Culture - Preliminary No growth in Aerobic bottle after 24 hours. No growth in Anaerobic bottle after 24 hours. 05/29/19 11:59 Blood Aerobic Blood Culture - Preliminary 05/29/19 11:59 Blood Anaerobic Blood Culture - Preliminary Gram positive cocci clusters No growth in Aerobic bottle after 24 hours. Assessment 28 year old M ordered empiric vancomycin IV for treatment of septic R knee s/p PCL reconstruction ~6 weeks ago * Outpatient R knee culture from 05/25 growing riley sensitive Coag neg staph * Gram positive cocci in clusters reported in 05/04 BC. Repeat BC pending Plan Vancomycin * Trough level of 8 mcg/mL is subtherapeutic * Change to 1750 mg (22 mg/kg) IV every 8 hours * Goal trough level:~15 mcg/mL * Will repeat trough level in 3-4 doses if therapy is continued Pharmacy will continue to follow and will adjust dose/frequency as necessary. Thank you.
[2019-05-30] MEDS: SENNA 8.6 MG TAB PO SCH (20:23)
[2019-05-30] MEDS: VANCOMYCIN HCL 1,750 MG in SODIUM CHLORIDE 0.9% 500 ML IV SCH (20:24)
[2019-05-31] MEDS: VANCOMYCIN HCL 1,750 MG in SODIUM CHLORIDE 0.9% 500 ML IV SCH (04:49)
[2019-05-31 05:55] LABS: Basophils # (auto) 0.01 K/uL (0-0.2); Basophils % (auto) 0.1 %; Eosinophils # (auto) 0.02 K/uL (0-0.5); Eosinophils % (auto) 0.3 %; Hematocrit (blood only) 36.8 % (42-52); Hemoglobin 12.3 g/dL (14.0-18.0); Immature Granulocytes # (auto) 0.01 K/uL (0.00-0.02); Immature Granulocytes % (auto) 0.1 %; Lymphocytes # (auto) 2.35 K/uL (1.2-3.4); Mean Corpuscular Hgb Conc 33.4 g/dL (32-36); Mean Corpuscular Volume 86.8 fL (80-100); Mean Platelet Volume 10.2 fL (7.4-10.4); Monocytes # (auto) 0.62 K/uL (0.11-0.59); Monocytes % (auto) 9.2 %; Neutrophils % (auto) 55.3 %; Platelet Count 369 K/uL (130-400); RDW Coefficient of Variation 11.7 % (11.5-14.5); Red Blood Count 4.24 M/uL (4.7-6.1); White Blood Count 6.71 K/uL (4.8-10.8)
[2019-05-31 06:29] LABS: Albumin Level 2.6 gm/dl (3.4-5.0); BUN Creatinine Ratio 14.7 (10-20); C Reactive Protein 6.77 mg/dl (0-0.29); Calcium 8.7 mg/dl (8.5-10.1); Creatinine Clr Calc Pharmacy 149.7 ml/min; Est GFR (African American) 145.9; Est GFR (Non-African American) 125.9; Potassium 3.5 mmol/L (3.5-5.1)
[2019-05-31 06:32] LABS: Albumin Globulin Ratio 0.6 (0.9-2); Bilirubin,Total 0.3 mg/dl (0.2-1); Globulin 4.6 gm/dl (2.5-4.0); Total Protein 7.2 gm/dl (6.4-8.2)
--- NOTE | 2019-05-31 07:06 | Orthopedic Progress Note ---
Date of Service May 31, 2019 Assessment & Plan (1) Septic joint of right knee joint: POD#2 right knee arthroscopic I&D -WBAT -Pain management -DVT prophylaxis-SCDs -AM labs-Sodium normalized. Hemoglobin to 12.3 this am from 14.5 on admission likely due to surgical loss and dilutional effect. -Continue IV vancomycin. Will await ID recommendations. Cx's from knee aspirate on 05/25/19 grew PHOTO GRAPHICS LIBRARIAN. Aspiration from office and OR cultures are growing staph, sensitivities pending. Blood cultures showing gram possitive cocci. Will likely need prolonged IV antibiotics, appreciate ID assistance. Subjective Resting in bed comfortably on arrival. Knee pain is improved. Overall patient states he is improved, night sweats improving. Afebrile. No chest pain, sob, dizziness, n/v. Review of Systems Review of Systems: All systems reviewed & are unremarkable except as noted in HPI & below Physical Exam Physical Exam: Right knee dressing is c/d/i, no calf tenderness. Toes mobile. Distally neurovascular status and sensation intact. Constitutional: well developed and well nourished; no acute distress Results & Data ([facility]) Vital Signs (Past 12 Hours) Vital Signs Temp Pulse Pulse Resp BP Pulse Ox 05/31/19 06:48 36.6 C 64 18 112/78 99 05/30/19 23:07 36.7 C 72 18 110/73 98 Laboratory Results H & H 05/29/19 05/30/19 05/31/19 Range/Units 11:59 04:43 05:31 Hgb 14.5 13.0 L 12.3 L (14.0-18.0) g/dL Hct 41.7 L 38.0 L 36.8 L (42-52) % (1) Septic joint of right knee joint Septic arthritis organism: due to unspecified organism Qualified Code(s): M00.9 - Pyogenic arthritis, unspecified
[2019-05-31] MEDS: MULTIVITAMIN TAB PO SCH (09:08)
[2019-05-31] MEDS: CeleBREX 200 MG CAP PO SCH ×2 (09:09→21:02)
[2019-05-31] MEDS: DICYCLOMINE HCL 10 MG CAP PO SCH ×3 (09:09→21:02)
[2019-05-31] MEDS: OXYCODONE/ACETAMINOPHEN 5mg/325mg TAB PO PRN (09:10)
[2019-05-31] MEDS: DOCUSATE SODIUM 100 MG CAP PO SCH ×2 (09:10→20:58)
[2019-05-31] MEDS ORDERED: VANCOMYCIN TROUGH ONE (11:30)
--- NOTE | 2019-05-31 11:45 | Infectious Disease Progress Nt ---
Date of Service May 31, 2019 Assessment & Plan (1) Septic joint of right knee joint: vanco trough low and HOOP ROLLS OPERATOR riley sensitive from outpatient culture, no sensitivities to follow blood cultures per micro lab. will change to roecphin and follow repeat cultures. If negative in am, would be candidate for picc line. will plan on 6 weeks IV rocephin, 2 g daily with weekly cbc, cmp, esr. can follow with ID post d/c. Subjective pt OR cultures and blood cultures growing HOOP ROLLS OPERATOR, also grew this on 05/25 outpatient aspirate. repeat blood cultures pending. tolerating abx well. afebrile overnight wbc 6, vanco trough 8. Results & Data Vital Signs (Past 12 Hours) Vital Signs Temp Pulse Resp BP Pulse Ox 05/31/19 06:48 36.6 C 64 18 112/78 99 Laboratory Results Microbiology 05/29/19 17:30 Knee,Right Gram Stain - Final 05/29/19 17:30 Knee,Right Aerobic and Anaerobic Culture - Preliminary Staphylococcus species 05/29/19 Unknown Knee,Right Gram Stain - Final 05/29/19 Unknown Knee,Right Joint Fluid Culture - Preliminary Coag negative Staphylococcus 05/29/19 11:59 Blood Aerobic Blood Culture - Preliminary No growth in Aerobic bottle after 24 hours. 05/29/19 11:59 Blood Anaerobic Blood Culture - Preliminary Coag neg staph not lugdunensis 05/29/19 12:00 Blood Aerobic Blood Culture - Preliminary No growth in Aerobic bottle after 24 hours. 05/29/19 12:00 Blood Anaerobic Blood Culture - Preliminary No growth in Anaerobic bottle after 24 hours. PG Care Time/CCT Total # of Minutes Spent Total Time Spent with Patient: Total time spent is greater than 50% in co ordination of care (as documented) at patient's floor/unit and/or counseling patient: Coding Level of Care Code 16389 Subseq Hosp Care Lvl 1 Diagnoses Septic joint of right knee joint M00.9 Septic arthritis organism: due to unspecified organism (1) Septic joint of right knee joint Septic arthritis organism: due to unspecified organism Qualified Code(s): M00.9 - Pyogenic arthritis, unspecified
[2019-05-31] MEDS: cefTRIAXone SODIUM 2,000 MG in DEXTROSE 5% 50 ML IV SCH (12:39)
--- NOTE | 2019-05-31 15:38 | XCELERA ---
[id number] [id number]
[2019-05-31] MEDS: SENNA 8.6 MG TAB PO SCH (20:58)
--- NOTE | 2019-05-31 22:18 | Hospitalist Progress Note ---
Date of Service May 31, 2019 Assessment & Plan (1) Septic joint of right knee joint: POD#2 right knee arthroscopic I&D with washout. Intra-op cultures with coag negative staph. Has remained on IV vancomycin since admission. ID - Dr Olsen - recommending changing IV vanco to IV rocephin x 6 weeks. Admit blood cx's were + for coag neg staph; thus far repeat blood cx's negative. If blood cx's (repeat) are still negative by tomorrow then ok for PICC line placement at that time. Echo w/o evidence endocarditis. Cont pain control. (2) Septicemia: 2nd to coag neg staph from septic right knee. repeat blood cx's negative to date. echo w/o endocarditis findings. appreciate ID input. changing abx today to IV rocephin 2gm IV daily x 6 weeks. labs/vitals stable. (3) Irritable bowel syndrome with diarrhea: continue Dicyclomine 10 mg PO TID no abx-associated diarrhea to date (4) Anxiety disorder: Continue buspirone 10 mg PO BID home tomorrow if PICC can be placed and insurance auth is obtained for the IV abx coverage. Subjective only complaint is that of right knee pain otherwise feeling good decent appetite no diarrhea Review of Systems Constitutional: no fever and no chills Physical Exam Constitutional: well developed and well nourished; no acute distress ENMT: external ear and nose normal, oropharynx normal Respiratory: normal respiratory effort, lungs clear to auscultation Cardiovascular: Rate/Rhythm: regular rate and regular rhythm Heart Sounds: normal S1 and normal S2; no murmur Vessels: posterior tibial pulses present and dorsalis pedis pulses present Extremities: + edema (right foot/ankle - 1+; none on left) Gastrointestinal (Abdomen): normal bowel sounds, soft, nontender, no hepatosplenomegaly Musculoskeletal: right knee - mild effusion noted; large BUDDY wrap in place; drain in place Psychiatric: A+Ox3, euthymic affect Results & Data Vital Signs (Past 12 Hours) Vital Signs Temp Pulse Resp BP Pulse Ox 05/31/19 15:05 36.7 C 83 18 126/84 97 Laboratory Results Laboratory Results - last 24 hr 05/31/19 05/31/19 05/31/19 05:31 05:31 11:36 WBC 6.71 RBC 4.24 L Hgb 12.3 L Hct 36.8 L MCV 86.8 MCH 29.0 MCHC 33.4 RDW Std Deviation 37.0 RDW Coeff of Roger 11.7 Plt Count 369 MPV 10.2 Immature Gran % (Auto) 0.1 Neut % (Auto) 55.3 Lymph % (Auto) 35.0 Cassia % (Auto) 9.2 Eos % (Auto) 0.3 Baso % (Auto) 0.1 Immature Gran # (Auto) 0.01 Neut # (Auto) 3.70 Lymph # (Auto) 2.35 Cassia # (Auto) 0.62 H Eos # (Auto) 0.02 Baso # (Auto) 0.01 Sodium 140 Potassium 3.5 Chloride 106 Carbon Dioxide 31 Anion Gap 3.0 BUN 11 Creatinine 0.76 Est Cr Clr Drug Dosing 149.7 Est GFR ( Amer) 145.9 Est GFR (Non-Af Amer) 125.9 BUN/Creatinine Ratio 14.7 Glucose 100 H Calcium 8.7 Total Bilirubin 0.3 AST 37 ALT 98 H Alkaline Phosphatase 125 H C-Reactive Protein 6.77 H Total Protein 7.2 Albumin 2.6 L Globulin 4.6 H Albumin/Globulin Ratio 0.6 L Vancomycin Trough 17.8 right knee cultures, admit blood cultures - coag neg staph PG Care Time/CCT Total # of Minutes Spent Total Time Spent with Patient: Total time spent is greater than 50% in coordination of care (as documented) at patient's floor/unit and/or counseling patient: Coding Level of Care Code 72548 Subseq Hosp Care Lvl 2 Diagnoses Septic joint of right knee joint M00.9 Septic arthritis organism: due to unspecified organism Septicemia A41.9 Irritable bowel syndrome with diarrhea K58.0 Anxiety disorder F41.1 Anxiety disorder type: generalized anxiety disorder (1) Anxiety disorder Anxiety disorder type: generalized anxiety disorder Qualified Code(s): F41.1 - Generalized anxiety disorder (2) Septic joint of right knee joint Septic arthritis organism: due to unspecified organism Qualified Code(s): M00.9 - Pyogenic arthritis, unspecified
[2019-06-01 05:54] LABS: BUN Creatinine Ratio 17.9 (10-20); Creatinine Clr Calc Pharmacy 149.7 ml/min; Est GFR (African American) 145.9; Est GFR (Non-African American) 125.9; Potassium 4.2 mmol/L (3.5-5.1)
[2019-06-01] MEDS: DOCUSATE SODIUM 100 MG CAP PO SCH (08:51)
[2019-06-01] MEDS: MULTIVITAMIN TAB PO SCH (08:51)
[2019-06-01] MEDS: CeleBREX 200 MG CAP PO SCH (08:52)
[2019-06-01] MEDS: DICYCLOMINE HCL 10 MG CAP PO SCH ×2 (08:52→14:29)
--- NOTE | 2019-06-01 09:22 | Orthopedic Progress Note ---
Date of Service June 01, 2019 Assessment & Plan (1) Septic joint of right knee joint: POD#3 right knee arthroscopic I&D -WBAT -Pain management -DVT prophylaxis-SCDs -Patient switched to IV Rocephin. Per ID will need 6 weeks of IV Rocephin 2 g daily. Cx's from knee aspirate on 05/25/19 grew CONTENT STRATEGIST. Aspiration from office and OR cultures are CONTENT STRATEGIST, staph species, sensitivities pending but previous sensitivities riley sensitive. Blood cultures showing CONTENT STRATEGIST, repeat blood cultures no growth at 24hrs. Appreciate ID assistance. -Will need Picc. -New dressing applied to hemovac site. Portals left open to air. Subjective POD#3 right knee arthroscopic I&D. Doing well, mild amount of pain in knee but otherwise doing well. No other complaints at this time. Review of Systems Review of Systems: All systems reviewed & are unremarkable except as noted in HPI & below Physical Exam Physical Exam: Right knee dressing removed and hemovac pulled. No erythema. Minimal sanguinous drainage from hemovac site. Incisions are c/d/i. No erythema. Mild effusion, no significant tenderness about the knee. No calf tenderness. distally n/v status and sensation intact. Constitutional: well developed and well nourished; no acute distress Results & Data ([facility]) Vital Signs (Past 12 Hours) Vital Signs Temp Pulse Resp BP Pulse Ox 05/31/19 23:05 36.5 C 63 16 101/65 99 (1) Septic joint of right knee joint Septic arthritis organism: due to unspecified organism Qualified Code(s): M00.9 - Pyogenic arthritis, unspecified
[2019-06-01] MEDS: cefTRIAXone SODIUM 2,000 MG in DEXTROSE 5% 50 ML IV SCH (14:28)
--- NOTE | 2019-06-01 19:31 | Hospitalist Progress Note ---
Date of Service June 01, 2019 Assessment & Plan (1) Septic joint of right knee joint: POD#3 right knee arthroscopic I&D with washout. Intra-op cultures with coag negative staph. One culture is growing a 2nd staph species, identification to follow. Initially was on IV vancomycin then changed to IV rocephin 2 grams daily x 6 weeks as per recommendations from Dr Olsen (ID). Admit blood cx's were + for coag neg staph; 05/30 repeat blood cx's cont to remain negative suggesting sterility. Echo w/o evidence endocarditis. I obtained PICC line consent from the patient. PICC then placed, and IV abx set up by social work. Post-discharge patient will need weekly CBC, CMP, and ESR while on IV abx therapy. Will need ortho f/u and ID f/u. (2) Septicemia: resolved. 2nd to coag neg staph from septic right knee. repeat blood cx's negative to date. echo w/o endocarditis findings. appreciate ID input. cont IV rocephin 2gm IV daily x 6 weeks. labs/vitals stable. (3) Irritable bowel syndrome with diarrhea: continue Dicyclomine 10 mg PO TID no abx-associated diarrhea to date (4) Anxiety disorder: Continue buspirone 10 mg PO BID from medical standpoint patient can d/c home today with home health/IV abx, ortho/ID f/u, etc. Subjective patient anxious to d/c home. mild right knee pain only, mainly lateral joint. no diarrhea. feels good overall. Review of Systems Constitutional: no fever and no chills Respiratory: no cough and no dyspnea Cardiovascular: no chest pain Gastrointestinal: no abdominal pain, no nausea, no vomiting and no diarrhea/loose stools Physical Exam Constitutional: well developed and well nourished; no acute distress ENMT: external ear and nose normal, oropharynx normal Respiratory: normal respiratory effort, lungs clear to auscultation Cardiovascular: Rate/Rhythm: regular rate and regular rhythm Heart Sounds: normal S1 and normal S2; no murmur Vessels: posterior tibial pulses present and dorsalis pedis pulses present Extremities: + edema (right foot/ankle - 1+; none on left) Gastrointestinal (Abdomen): normal bowel sounds, soft, nontender, no hepatosplenomegaly Musculoskeletal: right knee - mild joint effusion. NO erythema. Multiple sutures in place. Former drain site, laterally, covered w/ dressing. Psychiatric: A+Ox3, euthymic affect Results & Data ([facility]) Vital Signs (Past 12 Hours) Vital Signs Temp Pulse Pulse Resp BP Pulse Ox 06/01/19 16:03 36.6 C 64 82 16 116/78 97 06/01/19 15:27 36.6 C 82 16 116/78 97 Laboratory Results Laboratory Results - last 24 hr 06/01/19 04:53 Sodium 139 Potassium 4.2 D Chloride 106 Carbon Dioxide 30 Anion Gap 3.0 BUN 14 Creatinine 0.76 Est Cr Clr Drug Dosing 149.7 Est GFR ( Amer) 145.9 Est GFR (Non-Af Amer) 125.9 BUN/Creatinine Ratio 17.9 Glucose 87 Calcium 9.0 repeat blood cx's from 05/30/2019 negative to date PG Care Time/CCT Total # of Minutes Spent Total Time Spent with Patient: Total time spent is greater than 50% in coordination of care (as documented) at patient's floor/unit and/or counseling patient: Coding Level of Care Code 68420 Subseq Hosp Care Lvl 2 Diagnoses Septic joint of right knee joint M00.9 Septic arthritis organism: due to unspecified organism Septicemia A41.9 Irritable bowel syndrome with diarrhea K58.0 Anxiety disorder F41.1 Anxiety disorder type: generalized anxiety disorder (1) Anxiety disorder Anxiety disorder type: generalized anxiety disorder Qualified Code(s): F41.1 - Generalized anxiety disorder (2) Septic joint of right knee joint Septic arthritis organism: due to unspecified organism Qualified Code(s): M00.9 - Pyogenic arthritis, unspecified
--- NOTE | 2019-06-03 19:15 | Discharge Summary ---
Date of Service June 03, 2019 Admission HPI Per Admitting Provider 28 year old male with no signficant PMHx presented to the office with increasing right knee pain and swelling. He underwent arthroscopic PCL reconstruction about 6 weeks ago. He had an uneventful post operative course until about 1 1/2 weeks ago with increasing pain and swelling. States was walking and had some discomfort posteriorly, later in the day felt a crack in his knee and has had increasing pain and swelling since. He also reports feeling of fatigue, GI upset last week. Also reports he has been getting night sweats as well as having darker colored urine. He was seen in the office on 05/25/19 and knee was aspirated and sent for analysis. Results demonstrated cell count fo 8500 white cells, 91% polys. Grams stain showed no organisms but culture is growing staph species. Repeat aspiration in office today demonstrated gross purulence. Patient was directly admitted to [facility] for planned arthroscopic I&D this afternoon. Patient denies headaches, double vision, blurred vision, cough, sore throat, dysphagia, chest pain, sob, wheezing, n/v/d/c, numbness, tingling, fatigue, urinary symptoms, mood disorders. ROS positive for right knee pain and stiffness, night sweats, subjective chills. Admission Exam Per Admitting Provider Constitutional: well developed and well nourished; no acute distress Eyes: PERRL, conjunctivae normal, anicteric sclerae ENMT: external ear and nose normal, oropharynx normal Neck: normal visual inspection Respiratory: normal respiratory effort; no respiratory distress Cardiovascular: Rate/Rhythm: regular rhythm and + tachycardic Musculoskeletal: Right knee: Moderate to large effusion, no erythema. Surgical scars are well healed. ROM 0-80, painful at end range. Stable to valgus and varus stress. PCL and ACL stable on exam. Skin: no rashes, warm and dry Neurologic: patellar DTR's 2+ bilat, sensation intact Psychiatric: A+Ox3, euthymic affect Principal Diagnosis Right septic knee Discharge Exam Constitutional well developed and well nourished; no acute distress Eyes PERRL, conjunctivae normal, anicteric sclerae ENMT external ear and nose normal, oropharynx normal Neck normal visual inspection Respiratory normal respiratory effort; no respiratory distress Cardiovascular Rate/Rhythm: regular rhythm and + tachycardic Skin no rashes, warm and dry Neurologic patellar DTR's 2+ bilat, sensation intact Psychiatric A+Ox3, euthymic affect Discharge Data Allergies Allergy/AdvReac Type Severity Reaction Status Date / Time No Known Allergies Allergy Verified 05/19/19 10:08 Consultations 05/29/19 10:47 Consult Case Management - Discharge Planning Routine 05/29/19 10:50 Consult Infectious Diseases Routine 05/29/19 12:53 Consult Hospitalist Routine 05/29/19 18:14 Consult Case Management - Discharge Planning Routine Procedures Performed Operation Date: 05/29/19 14:05 Actual Procedures p Right Knee Incision and Drainage Arthroscopy(Right) - Niraj Eng MD Hospital Course (1) Septic joint of right knee joint: Patient was admitted on Wednesday05/29/19 as a direct admit from our office due to a right septic knee. Right knee arthroscopic I&D was performed, patient tolerated procedure well. His activity post operatively was progressed and well tolerated. [facility] Infectious disease and [facility] hospitalist service were consulted to provide assistance during admission. Patient was found to have positive blood cultures growing TWISTING MACHINE OPERATOR with repeat cultures showing no growth. Knee aspirates from the office grew riley sensitive TWISTING MACHINE OPERATOR. Patient was switched from vancomycin to Rocephin on POD#2. He will receive 6 weeks of IV antibiotics, 2 g Rocephin daily. He is WBAT. On POD#3 patient PICC line was placed and patient felt stable for discharge home with services for home IV antibiotics. He will follow up in our office and with Dr. Olsen post operatively. Lab Results 05/29/19 05/29/19 05/29/19 Range/Units 11:59 11:59 11:59 WBC 7.90 (4.8-10.8) K/uL RBC 4.88 (4.7-6.1) M/uL Hgb 14.5 (14.0-18.0) g/dL Hct 41.7 L (42-52) % MCV 85.5 (80-100) fL MCH 29.7 (25-34) pg MCHC 34.8 (32-36) g/dL RDW Std Deviation 35.6 L (36.4-46.3) fL RDW Coeff of Roger 11.4 L (11.5-14.5) % Plt Count 382 (130-400) K/uL MPV 10.0 (7.4-10.4) fL Immature Gran % (Auto) 0.1 % Neut % (Auto) 73.4 % Lymph % (Auto) 9.5 % Hutchinson % (Auto) 16.8 % Eos % (Auto) 0.1 % Baso % (Auto) 0.1 % Immature Gran # (Auto) 0.01 (0.00-0.02) K/uL Neut # (Auto) 5.79 (1.4-6.5) K/uL Lymph # (Auto) 0.75 L (1.2-3.4) K/uL Hutchinson # (Auto) 1.33 H (0.11-0.59) K/uL Eos # (Auto) 0.01 (0-0.5) K/uL Baso # (Auto) 0.01 (0-0.2) K/uL ESR > 90 H (0-14) mm/hr Sodium (136-145) mmol/L Potassium (3.5-5.1) mmol/L Chloride (98-107) mmol/L Carbon Dioxide (21-32) mmol/L Anion Gap (3-11) BUN (7-18) mg/dl Creatinine (0.6-1.4) mg/dl Est Cr Clr Drug Dosing ml/min Est GFR ( Amer) Est GFR (Non-Af Amer) BUN/Creatinine Ratio (10-20) Glucose (70-99) mg/dl Calcium (8.5-10.1) mg/dl Total Bilirubin (0.2-1) mg/dl AST (15-37) U/L ALT (12-78) U/L Alkaline Phosphatase (45-117) U/L C-Reactive Protein 18.00 H (0-0.29) mg/dl Total Protein (6.4-8.2) gm/dl Albumin (3.4-5.0) gm/dl Globulin (2.5-4.0) gm/dl Albumin/Globulin Ratio (0.9-2) Synovial Source Synovial Color Synovial Appearance Synovial WBC (0-200) /ul Synovial RBC /uL Synovial Polynuclear % % Synovial Mononuclear % % Vancomycin Trough (See Comment) mcg/ml 05/29/19 05/29/19 05/30/19 Range/Units 11:59 Unknown 04:43 WBC (4.8-10.8) K/uL RBC (4.7-6.1) M/uL Hgb (14.0-18.0) g/dL Hct (42-52) % MCV (80-100) fL MCH (25-34) pg MCHC (32-36) g/dL RDW Std Deviation (36.4-46.3) fL RDW Coeff of Roger (11.5-14.5) % Plt Count (130-400) K/uL MPV (7.4-10.4) fL Immature Gran % (Auto) % Neut % (Auto) % Lymph % (Auto) % Hutchinson % (Auto) % Eos % (Auto) % Baso % (Auto) % Immature Gran # (Auto) (0.00-0.02) K/uL Neut # (Auto) (1.4-6.5) K/uL Lymph # (Auto) (1.2-3.4) K/uL Hutchinson # (Auto) (0.11-0.59) K/uL Eos # (Auto) (0-0.5) K/uL Baso # (Auto) (0-0.2) K/uL ESR (0-14) mm/hr Sodium 130 L 135 L (136-145) mmol/L Potassium 3.6 4.0 (3.5-5.1) mmol/L Chloride 96 L 102 (98-107) mmol/L Carbon Dioxide 25 27 (21-32) mmol/L Anion Gap 9.0 6.0 (3-11) BUN 12 10 (7-18) mg/dl Creatinine 1.04 0.71 D (0.6-1.4) mg/dl Est Cr Clr Drug Dosing 109.4 160.2 ml/min Est GFR ( Amer) 114.3 > 150.0 Est GFR (Non-Af Amer) 98.6 129.5 BUN/Creatinine Ratio 11.5 13.7 (10-20) Glucose 98 121 H (70-99) mg/dl Calcium 9.9 8.8 (8.5-10.1) mg/dl Total Bilirubin (0.2-1) mg/dl AST (15-37) U/L ALT (12-78) U/L Alkaline Phosphatase (45-117) U/L C-Reactive Protein (0-0.29) mg/dl Total Protein (6.4-8.2) gm/dl Albumin (3.4-5.0) gm/dl Globulin (2.5-4.0) gm/dl Albumin/Globulin Ratio (0.9-2) Synovial Source KNEE Synovial Color Yellow Synovial Appearance Turbid Synovial WBC 387348 H (0-200) /ul [place] 85[address] /uL Synovial Polynuclear % 95.8 % Synovial Mononuclear % 4.2 % Vancomycin Trough (See Comment) mcg/ml 05/30/19 05/30/19 05/31/19 Range/Units 04:43 14:07 05:31 WBC 4.49 L 6.71 (4.8-10.8) K/uL RBC 4.40 L 4.24 L (4.7-6.1) M/uL Hgb 13.0 L 12.3 L (14.0-18.0) g/dL Hct 38.0 L 36.8 L (42-52) % MCV 86.4 86.8 (80-100) fL MCH 29.5 29.0 (25-34) pg MCHC 34.2 33.4 (32-36) g/dL RDW Std Deviation 36.0 L 37.0 (36.4-46.3) fL RDW Coeff of Roger 11.5 11.7 (11.5-14.5) % Plt Count 344 369 (130-400) K/uL MPV 10.0 10.2 (7.4-10.4) fL Immature Gran % (Auto) 0.1 % Neut % (Auto) 55.3 % Lymph % (Auto) 35.0 % Hutchinson % (Auto) 9.2 % Eos % (Auto) 0.3 % Baso % (Auto) 0.1 % Immature Gran # (Auto) 0.01 (0.00-0.02) K/uL Neut # (Auto) 3.70 (1.4-6.5) K/uL Lymph # (Auto) 2.35 (1.2-3.4) K/uL Hutchinson # (Auto) 0.62 H (0.11-0.59) K/uL Eos # (Auto) 0.02 (0-0.5) K/uL Baso # (Auto) 0.01 (0-0.2) K/uL ESR (0-14) mm/hr Sodium (136-145) mmol/L Potassium (3.5-5.1) mmol/L Chloride (98-107) mmol/L Carbon Dioxide (21-32) mmol/L Anion Gap (3-11) BUN (7-18) mg/dl Creatinine (0.6-1.4) mg/dl Est Cr Clr Drug Dosing ml/min Est GFR ( Amer) Est GFR (Non-Af Amer) BUN/Creatinine Ratio (10-20) Glucose (70-99) mg/dl Calcium (8.5-10.1) mg/dl Total Bilirubin (0.2-1) mg/dl AST (15-37) U/L ALT (12-78) U/L Alkaline Phosphatase (45-117) U/L C-Reactive Protein (0-0.29) mg/dl Total Protein (6.4-8.2) gm/dl Albumin (3.4-5.0) gm/dl Globulin (2.5-4.0) gm/dl Albumin/Globulin Ratio (0.9-2) Synovial Source Synovial Color Synovial Appearance Synovial WBC (0-200) /ul Synovial RBC /uL Synovial Polynuclear % % Synovial Mononuclear % % Vancomycin Trough 8.0 (See Comment) mcg/ml 05/31/19 05/31/19 06/01/19 Range/Units 05:31 11:36 04:53 WBC (4.8-10.8) K/uL RBC (4.7-6.1) M/uL Hgb (14.0-18.0) g/dL Hct (42-52) % MCV (80-100) fL MCH (25-34) pg MCHC (32-36) g/dL RDW Std Deviation (36.4-46.3) fL RDW Coeff of Roger (11.5-14.5) % Plt Count (130-400) K/uL MPV (7.4-10.4) fL Immature Gran % (Auto) % Neut % (Auto) % Lymph % (Auto) % Hutchinson % (Auto) % Eos % (Auto) % Baso % (Auto) % Immature Gran # (Auto) (0.00-0.02) K/uL Neut # (Auto) (1.4-6.5) K/uL Lymph # (Auto) (1.2-3.4) K/uL Hutchinson # (Auto) (0.11-0.59) K/uL Eos # (Auto) (0-0.5) K/uL Baso # (Auto) (0-0.2) K/uL ESR (0-14) mm/hr Sodium 140 139 (136-145) mmol/L Potassium 3.5 4.2 D (3.5-5.1) mmol/L Chloride 106 106 (98-107) mmol/L Carbon Dioxide 31 30 (21-32) mmol/L Anion Gap 3.0 3.0 (3-11) BUN 11 14 (7-18) mg/dl Creatinine 0.76 0.76 (0.6-1.4) mg/dl Est Cr Clr Drug Dosing 149.7 149.7 ml/min Est GFR ( Amer) 145.9 145.9 Est GFR (Non-Af Amer) 125.9 125.9 BUN/Creatinine Ratio 14.7 17.9 (10-20) Glucose 100 H 87 (70-99) mg/dl Calcium 8.7 9.0 (8.5-10.1) mg/dl Total Bilirubin 0.3 (0.2-1) mg/dl AST 37 (15-37) U/L ALT 98 H (12-78) U/L Alkaline Phosphatase 125 H (45-117) U/L C-Reactive Protein 6.77 H (0-0.29) mg/dl Total Protein 7.2 (6.4-8.2) gm/dl Albumin 2.6 L (3.4-5.0) gm/dl Globulin 4.6 H (2.5-4.0) gm/dl Albumin/Globulin Ratio 0.6 L (0.9-2) Synovial Source Synovial Color Synovial Appearance Synovial WBC (0-200) /ul Synovial RBC /uL Synovial Polynuclear % % Synovial Mononuclear % % Vancomycin Trough 17.8 (See Comment) mcg/ml Total Time Total Time Spent Total Time Spent (In Minutes): 20 Discharge Plan Discharge Items Patient Disposition: Home - Home Health Services Reason For Visit: INFECTED RIGHT KNEE/STATUS PST PCL RECONSTRUCTION Discharge Diagnosis: Infected right knee Activity: Per Instructions section Non-emergency contact: Surgeon Call non-emergency contact if: you have any medication questions, your pain is not controlled, your pain is worsening, your pain is concerning for you, you have a fever, your temperature is above 101, your wound has increased redness, your wound has increased drainage and your wound pain has increased Follow-up/Referrals: Leonarda Olsen DO [Physician] - 06/12/19 10:00 am (Please, follow up at [facility] Infectious Disease Specialist Office with Dr. Olsen on WednesdayJune 12 at 10:15 am (arrive 10:00 am). *The office is located in [address] of [facility][Note 3], next to this hospital. If you need to change this appointment, call the office at [phone].) Ferny Grimes MD [Primary Care Provider] - 06/13/19 8:30 am (Please, follow up with Dr. Grimes on WednesdayJune 13 at 8:30 am. *If you need to change this appointment, call the office at [phone].) Diet: Regular Addtl Attending Provider Instructions: ACTIVITY RECOMMENDATIONS: * You may walk on the leg with or without crutches as comfort permits. * Bending of the knee should start at once. * Do not shower for 48 hours following surgery. SPECIAL CARE INSTRUCTIONS: * You may cleanse the skin adjacent to the small wounds with soap and water at the time of the first dressing change. * The application of an ice bag to the front and sides of the knee will decrease swelling and discomfort for the first 48 hours. * The small incisions may be sore and develop bruising. This bruising does not require any special care. SPECIAL PRECAUTIONS: * If you experience unusual pain unrelieved by prescriptions, temperature elevation (100 degrees F. or above) or progressive swelling or bleeding, you should contact our office at for further evaluation. * You may have been prescribed pain medication. If you experience nausea and/or fine skin rash, discontinue this medication and contact our office at for an alternate medication. DRESSING: * Dressing should be comfortable and absorb any leakage of fluid and/or blood. * The dressing may become moist or bloodstained. * Dressing may be removed 48hrs__ after surgery and bandaids placed over the small surgical incisions. If can be removed sooner if it becomes very soiled or loose. * Bandaids may be used over next several days as needed and can be discontinued when there is not further drainage from the wounds. FOLLOW UP VISIT: If appointment is not already scheduled: Please call [facility] to make a follow-up appointment for 10-14 days post operatively. your surgery at Call [phone] for a follow up appointment with Dr. Olsen of Infectious disease. You will need a total of 6 weeks of IV antibiotics. Addtl Fabric Designer Provider Instructions: The [facility] will contact you to set up your outpatient Physical Therapy at [facility]. They will also make your follow-up orthopedic appointment. [facility] phone # [phone] Pending Studies at Discharge: No Stand-Alone Forms: My [facility], Smoking Cessation Medications and DC Order Prescriptions: New ceftriaxone 2 gram recon soln 2 gm IV DAILY Qty: 42 RF: 0 Continued rifaximin 550 mg tablet 550 mg PO TID 14 Days Qty: 42 RF: 0 dicyclomine 10 mg capsule 10 mg PO TID Qty: 90 RF: 2 oxycodone-acetaminophen [Percocet] 5-325 mg Tablet 1 tab PO TID PRN (Reason: Pain) RF: 0 buspirone 10 mg Tablet 10 mg PO BID RF: 0 Discharge Orders: Discharge Order (Routine); Ordered 06/01/19 Ordered By: Peterson Green Admission Data Admit Date/Time: 05/29/19 11:12 Attending Provider: Niraj Eng Admit Provider: Niraj Eng Primary Care Provider: Ferny Grimes Other Providers: Leonarda Olsen ; Liv Ellington ; [facility],Home Health Other Interventions: Discharge Summary Assessment (RN) Last Done: 06/01/19 16:03 DC Date/Time DO NOT enter until pt leaves facility: 06/01/19 17:26
== END 2019-06-01 17:26 | disposition home health service (06) | DRG 854 ==
LOC: 3N 11:12 → SUATTDRO 11:12